=== PATIENT | female | born 1970 | race Two or more races ===

== ENCOUNTER 2018-03-05 11:11 | Outpatient (CLI) | payer OTHER | END 2018-03-05 15:55 | disposition home or self-care (01) | LOC: RAD 501 11:11 | DX: M25.551 Pain in right hip (principal) ==

== ENCOUNTER 2019-03-06 13:25 | Outpatient (CLI) | payer OTHER | END 2019-03-06 13:35 | disposition home or self-care (01) | LOC: RAD 501 13:25 | DX: R07.89 Other chest pain (principal) ==

== ENCOUNTER 2023-06-12 07:37 | Outpatient (CLI) | payer OTHER | END 2023-06-12 07:38 | disposition home or self-care (01) | LOC: NUCLEAR 07:37 | PROVIDERS: ATTEND Obstetrics & Gynecology | DX: M85.9 Disorder of bone density and structure, unspecified (principal) ==